=== PATIENT | female | born 1980 | race Caucasian/White ===

== ENCOUNTER 2020-06-04 14:02 | Emergency (ER) | payer BC, SELFPAY ==
[2020-06-04 14:16] VITALS: BP 137/94; PULSE 83; RESP 20; TEMP 36.8; O2SAT 97; BMI 27.3
--- NOTE | 2020-06-04 14:32 | HMH.EDUTC ---
[facility] [place]: Bronchitis Disposition: Home, Self-Care Condition on Discharge: Good Instructions: DI for Acute Bronchitis Additional Instructions: Start antibiotic today. Be sure to complete entire prescription even if feeling better Tylenol and ibuprofen as needed for pain or fever Humidifier/vaporizer/hot steamy shower Follow-up with primary care tomorrow. Follow-up immediately in the ER of the [facility] for new or worsening symptoms or no noticeable improvement over the next 48-72 hours. Stop smoking Inhaler every 4-6 hours as needed. Should help open airways improved cough, wheezing, shortness of breath David Cam will not cause drowsiness to use at bedtime to help stop cough so that she can get some sleep Start steroids today. Helps with inflammation therefore coughing and wheezing. Follow directions on package. Patient states they have taken them before. Prescriptions: predniSONE [Prednisone 20mg Tab] 20 mg PO BID #10 tab Prescription Printed Azithromycin [Zithromax 250mg tab] 250 mg PO DIRECTED #6 tab Prescription Printed Referrals: PCP,No [Primary Care Provider] - Time of Disposition: 14:45 Medical Decision Making - Abilio Inquiry Pt receiving controlled substance: No Vital Signs: 06/04/20 14:16 06/04/20 14:37 Temperature 98.3 F 98.3 F Temperature Source Oral Pulse Rate 83 Pulse Rate [Left] 83 Respiratory Rate 20 20 Blood Pressure 137/94 H Blood Pressure [Right Arm] 137/94 H Blood Pressure Mean [Right Arm] 108 Blood Pressure Source [Right Arm] Automatic Cuff Blood Pressure Position [Right Arm] Sitting 02 Sat by Pulse Oximetry 97 Oxygen Delivery Method Room Air Room Air Orders (Tests/Meds): ORDERS Category Date Time Status SARS-CoV-2, BRANDON Stat Lab 06/04/20 14:24 [place] [facility] [place] - General Chief complaint: [facility] Stated complaint: possible upper resp infection Time Seen by Provider: 06/04/20 14:39 Mode of Arrival: Ambulatory Source of Information: Patient Limitations: No Limitations Description of Symptoms (Recalled from Triage Doc. by RN): Chest congestion, running nose, stuffy nose, SOB. Pt states that she thinks she has an upper respiratory infection. Pt's has had same symptoms and was Covid tested negative and was told he had Rhino infection. HEENT Symptoms (Recalled from RN notes): Yes Resp Symptoms (Recalled from RN notes): Yes Skin Symptoms (Recalled from RN notes): No MS Symptoms (Recalled from RN notes): No Functional Status (Recalled from RN notes): stable - History of Present Illness Provider Complaint: 39-year-old female presents for sore throat, shortness of breath, coughing up thick yellow-white sputum, cough and low-grade fever. Patient states her has the same symptoms and was tested for positive it was negative. 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 - Related Data Previous Rx's Medication Instructions Recorded rsgungzscwvowze-ahvlgxmxqdwbpej-WD 10 ml PO Q4-6H PRN #200 ml 01/21/20 2 mg-30 mg-10 mg/5 mL oral syrup Azithromycin [Zithromax 250mg 250 mg PO DIRECTED #6 tab 06/04/20 tab] predniSONE [Prednisone 20mg 20 mg PO BID #10 tab 06/04/20 Tab] Allergies Allergy/AdvReac Type Severity Reaction Status Date / Time No Known Allergies Allergy Verified 01/21/20 11:12 - Worker's Comp Is this a Worker's Comp case?: No Is this an [facility] Worker's Comp?: No Is this a Mookie Worker's Comp?: No H History - Hepatitis A Screen Drug use history?: No High risk sexual behaviors?: No History of sexually transmitted infection?: No Currently employed?: No Childcare worker?: No Do you have indoor plumbing?: Yes Do you have electricity?: Yes Attestation statement:: This patient has been screened for Hepatitis A risk factors. Medical History: Denies:: Canc
[2020-06-04 14:37] VITALS: BP 137/94; PULSE 83; RESP 20; TEMP 36.8; O2SAT 97
[2020-06-06 13:17] LABS: Covid-19 Nasal PCR Sendout Lex NOT DETECTED
== END 2020-06-04 14:53 | disposition home or self-care (01) ==
PROVIDERS: Emergency Provider Nurse Practitioner Family
DX: J20.9 Acute bronchitis, unspecified (principal); F17.210 Nicotine dependence, cigarettes, uncomplicated
CPT/HCPCS: 99201; U0004

== ENCOUNTER 2020-09-26 09:10 | Emergency (ER) | payer MEDICAID, SELFPAY ==
[2020-09-26 09:31] VITALS: BP 130/85; PULSE 83; RESP 18; TEMP 36.7; O2SAT 96; BMI 26.7
--- NOTE | 2020-09-26 09:41 | HMH.EDUTC ---
[facility] [place] Impression: Bronchitis Sinusitis Qualifiers: Sinusitis location: unspecified location Chronicity: unspecified Qualified Code(s): J32.9 - Chronic sinusitis, unspecified Disposition: Home, Self-Care Condition on Discharge: Good Instructions: Sinusitis, Sinus Headache, DI for Sinusitis, Acute Bronchitis, DI for Acute Bronchitis Additional Instructions: ? Start antibiotic today. Be sure to complete entire prescription even if feeling better ? Monitor temp. Tylenol every 4 hours as needed and / or ibuprofen every 6 hours as needed ( As long as your primary care physician has told you that it ok to take both. For fever/aches/pains ER if no less than 101 despite Tylenol or Motrin ? Humidifier/vaporizer or hot steamy shower ? Inhaler every 4-6 hours as needed like we discussed. If unsure how to use it, ask pharmacist to demonstrate how. Should help open airways and improve cough, wheezing, and shortness of breath ? Mucinex during the day for your cough and cough suppressant only at night. Be sure to drink lots of water. Insurance may not cover a prescriptions for mucinex. Might be cheaper to get 400mg tablets and take 2 tablet in the morning, mid-day and evening with lots of water. Start steroid today. Helps with inflammation therefore, cough and wheezing. Follow directions on the package. Reviewed side effects. Patient reports taking them before. Follow up IMMEDIATELY for new or worsening of symptoms OR no noticeable improvement over the next 48-72 hours. 911 immediately for any life threatening symptoms such as chest pain or difficulty breathing Prescriptions: Albuterol Sulfate [Proventil-HFA 90mcg/puff Inh] 1 - 2 puffs IH Q4HP PRN #1 inh PRN Reason: Shortness Of Breath Transmission Status: Pending to [facility] methylPREDNISolone [Medrol 4mg tab] 4 mg PO DIRECTED #21 tab Transmission Status: Pending to [facility] Azithromycin [Z-Zac 250mg Tab] 250 mg PO DIRECTED #6 tab Transmission Status: Pending to [facility] Referrals: PCP,No [Primary Care Provider] - Forms: Work/School Release Time of Disposition: 09:49 Medical Decision Making - Abilio Inquiry Pt receiving controlled substance: No Abilio was queried for this patient: No Vital Signs: 09/26/20 09:31 Temperature 98.1 F Temperature Source Oral Pulse Rate [Radial] 83 Respiratory Rate 18 Blood Pressure [Right Arm] 130/85 Blood Pressure Mean [Right Arm] 100 Blood Pressure Source [Right Arm] Automatic Cuff Blood Pressure Position [Right Arm] Sitting 02 Sat by Pulse Oximetry 96 Oxygen Delivery Method Room Air [facility] [place] - General Stated complaint: congestion Time Seen by Provider: 09/26/20 09:40 Mode of Arrival: Ambulatory Source of Information: Patient Limitations: No Limitations Description of Symptoms (Recalled from Triage Doc. by RN): chest congestion, needs albuterol inhaler refilled. HEENT Symptoms (Recalled from RN notes): Yes Resp Symptoms (Recalled from RN notes): No Skin Symptoms (Recalled from RN notes): No MS Symptoms (Recalled from RN notes): No Functional Status (Recalled from RN notes): wnl - History of Present Illness Provider Complaint: Patient states that she is an everyday smoker and around this time every year she gets bronchitis and sinusitis States that she started having sinus congestion over a week ago and it is moving into her chest so she came in States that she is also out of her albuteral inhaler and wanted to see if she can get one Reports was just tested for COVID on Thursday and it was negative - Related Data Previous Rx's Medication Instructions Recorded buspdsoaicetcac-lbusdbfebxgsmml-EA 10 ml PO Q4-6H PRN #200 ml 01/21/20 2 mg-30 mg-10 mg/5 mL oral syrup Azithromycin [Zithromax 250mg 250 mg PO DIRECTED #6 tab 06/04/20 tab] predniSONE [Prednisone 20mg 20 mg PO BID #10 tab 06/04/20 Tab] Albuterol Sulfate [Proventil-HFA 1 - 2 puffs I
[2020-09-26 10:14] VITALS: BP 130/85; PULSE 83; RESP 18; TEMP 36.7; O2SAT 96
== END 2020-09-26 10:15 | disposition home or self-care (01) ==
PROVIDERS: Emergency Provider Nurse Practitioner
DX: J20.9 Acute bronchitis, unspecified (principal); J32.9 Chronic sinusitis, unspecified; F17.210 Nicotine dependence, cigarettes, uncomplicated
CPT/HCPCS: 99201

== ENCOUNTER 2020-12-28 11:25 | Emergency (ER) | payer BC, SELFPAY ==
[2020-12-28 11:25] VITALS: BP 136/90; PULSE 93; RESP 14; TEMP 36.1; O2SAT 99; BMI 28.3
--- NOTE | 2020-12-28 11:41 | XR_ITS ---
PROCEDURE: XR LUMBAR SPINE 2-3V CLINICAL INDICATION: PAIN Low back pain, no known injury COMPARISON: No exams were available for comparison FINDINGS: Mild degenerative changes are suspected in the lower thoracic spine. There is normal height and alignment of the lumbar vertebral bodies and intervertebral discs. There is no significant lumbar degenerative change. There is a large amount of stool within the colon. IMPRESSION: Suspect mild degenerative change in the lower thoracic spine. Normal lumbar spine. Constipation. Dictated by: Kirstin Mehta MD 12/28/2020 13:14 Kirstin Mehta MD in [place] 12/28/2020 13:14
--- NOTE | 2020-12-28 11:46 | HMH.EDUTC ---
[facility] [place] Clinical Impression: Low back pain Qualifiers: Chronicity: acute Back pain laterality: bilateral Sciatica presence: without sciatica Qualified Code(s): M54.5 - Low back pain Disposition: Home, Self-Care Condition on Discharge: Good Instructions: DI for Low Back Pain Additional Instructions: Follow up with PCP if not improving. Prescriptions: Cyclobenzaprine HCl [Cyclobenzaprine 10mg Tab*] 10 mg PO TIDP PRN 10 Days #30 tab PRN Reason: Muscle Spasm Transmission Status: [facility] Naproxen 500 mg PO BID 10 Days #20 tab Transmission Status: [facility] Referrals: PCP,No [Primary Care Provider] - Medical Decision Making - Abilio Inquiry Pt receiving controlled substance: No Vital Signs: 12/28/20 11:25 Temperature 97.0 F L Temperature Source Oral Pulse Rate [Right Brachial] 93 H Respiratory Rate 14 Blood Pressure [Right Arm] 136/90 Blood Pressure Mean [Right Arm] 105 Blood Pressure Source [Right Arm] Automatic Cuff Blood Pressure Position [Right Arm] Sitting 02 Sat by Pulse Oximetry 99 Oxygen Delivery Method Room Air Orders (Tests/Meds): ORDERS Category Date Time Status Lumbar spine XR 2-3 views [XR lumbar spine 2-3V] Stat Exams 12/28/20 11:41 Taken - Radiology Data #1 Image(s): L-Spine Image Reviewed: Yes I reviewed the patient's radiology image Preliminary Findings: Normal/NAD, No Fracture Seen [facility] [place] - General Stated complaint: back pain Time Seen by Provider: 12/28/20 11:46 Mode of Arrival: Ambulatory Source of Information: Patient Limitations: No Limitations Description of Symptoms (Recalled from Triage Doc. by RN): PATIENT C/O LOWER BACK PAIN X 3 DAYS. 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 Denies specific injury, but may have injured it lifting someone at work. Hurts across the entire low back. Has pulled a muscle before but this feels different. No numbness or tingling in her legs. No bowel or bladder incontinence. Couldn't hardly get straightened up this morning when she got out of bed. Actually crawled to the bathroom and then nearly cried when she stood up. Cannot find a comfortable position either sitting or lying down. Onset (ago): day(s) (3) Location: back Relieving factors: none Exacerbating factors: none Associated symptoms: denies other symptoms Treatments prior to arrival: none - Related Data Previous Rx's Medication Instructions Recorded akshglsamaerips-gfddlgvjywvejzg-ED 10 ml PO Q4-6H PRN #200 ml 01/21/20 2 mg-30 mg-10 mg/5 mL oral syrup Azithromycin [Zithromax 250mg 250 mg PO DIRECTED #6 tab 06/04/20 tab] predniSONE [Prednisone 20mg 20 mg PO BID #10 tab 06/04/20 Tab] Albuterol Sulfate [Proventil-HFA 1 - 2 puffs IH Q4HP PRN #1 inh 09/26/20 90mcg/puff Inh] Azithromycin [Z-Zac 250mg Tab] 250 mg PO DIRECTED #6 tab 09/26/20 methylPREDNISolone [Medrol 4mg 4 mg PO DIRECTED #21 tab 09/26/20 tab] Cyclobenzaprine HCl 10 mg PO TIDP PRN 10 Days #30 tab 12/28/20 [Cyclobenzaprine 10mg Tab*] Naproxen 500 mg PO BID 10 Days #20 tab 12/28/20 Allergies Allergy/AdvReac Type Severity Reaction Status Date / Time No Known Allergies Allergy Verified 01/21/20 11:12 - Worker's Comp Is this a Worker's Comp case?: No [facility] History - Hepatitis A Screen Drug use history?: No High risk sexual behaviors?: No History of sexually transmitted infection?: No Currently employed?: No Childcare worker?: No Do you have indoor plumbing?: Yes Do you have electricity?: Yes Attestation statement:: This patient has been screened for Hepati
[2020-12-28 12:23] VITALS: BP 136/90; PULSE 93; RESP 14; TEMP 36.1; O2SAT 99
== END 2020-12-28 12:25 | disposition home or self-care (01) ==
PROVIDERS: Emergency Provider Physician Assistant
DX: M54.5 Low back pain (principal); Z79.899 Other long term (current) drug therapy; F17.210 Nicotine dependence, cigarettes, uncomplicated
CPT/HCPCS: 72100; 99202; G0463

== ENCOUNTER 2021-09-16 15:16 | Emergency (ER) | payer BC, SELFPAY ==
[2021-09-16 15:45] VITALS: BP 135/73; PULSE 82; RESP 16; TEMP 37.1; O2SAT 98; BMI 27.6
--- NOTE | 2021-09-16 16:08 | HMH.EDUTC ---
[facility] [place] Clinical Impression: URI (upper respiratory infection) Qualifiers: URI type: unspecified URI Qualified Code(s): J06.9 - Acute upper respiratory infection, unspecified Disposition: Home, Self-Care Condition on Discharge: Good Instructions: Sinusitis, DI for Sinusitis, Sore Throat Additional Instructions: *Monitor Temp, Over the counter Motrin or Tylenol as directed/as needed Tylenol every 4 hours and Motrin every 6 hours (as long as your family doctor has told you that you can take it) for fever or pain. and straight to ER if unable to lower temp less than 101.0 after medication given *Warm salt water gargles may help to soothe the throat *Throat Lozenges *Warm fluids like tea with honey may help to soothe the throat *Sleep elevated *Humidifier/Vaporizer *Flonase 2 sprays in each nostril daily but be aware that it may take 2-3 days before you notice improvement Take medication as prescribed Follow up IMMEDIATELY for new or worsening symptoms or no Noticeable improvement over the next 48-72 hours. 911 for difficulty breathing or swallowing Prescriptions: Fluticasone Propionate [Flonase 50mcg nasal spray 16gm] 1 spr NS DAILY #1 each Transmission Status: Pending to [facility] Cefdinir [Omnicef 300mg Capsule] 300 mg PO BID #20 cap [facility]: [facility] Referrals: Provider,Referral, MD [Primary Care Provider] - As needed Forms: Work/School Release Time of Disposition: 16:16 Medical Decision Making - Abilio Inquiry Pt receiving controlled substance: No Abilio was queried for this patient: No Vital Signs: 09/16/21 15:45 Temperature 98.7 F Temperature Source Oral Pulse Rate [Right Brachial] 82 Respiratory Rate 16 Blood Pressure [Right Arm] 135/73 Blood Pressure Mean [Right Arm] 93 Blood Pressure Source [Right Arm] Automatic Cuff Blood Pressure Position [Right Arm] Sitting 02 Sat by Pulse Oximetry 98 Oxygen Delivery Method Room Air [facility] [place] - General Stated complaint: sore sore throat,cough,congestion Time Seen by Provider: 09/16/21 16:08 Mode of Arrival: Ambulatory Source of Information: Patient Limitations: No Limitations Description of Symptoms (Recalled from Triage Doc. by RN): PATIENT C/O CONGESTION, SORE THROAT, COUGH, RUNNY NOSE AND NASAL CONGESTION X 3 DAYS HEENT Symptoms (Recalled from RN notes): Yes Resp Symptoms (Recalled from RN notes): No Skin Symptoms (Recalled from RN notes): No MS Symptoms (Recalled from RN notes): No Functional Status (Recalled from RN notes): WNL - History of Present Illness Provider Complaint: Patient states that she has been having sinus pressure and pain along with sore throat, drainage in the back of her throat and headache and cough States that son just tested positive for strep throat and she thinks she may have a sinus infection State that she feels like she is having worsening of pressure behind her eyes so she came in Relieving factors: none - Related Data Previous Rx's Medication Instructions Recorded Cefdinir [Omnicef 300mg Capsule] 300 mg PO BID #20 cap 09/16/21 Fluticasone Propionate [Flonase 1 spr NS DAILY #1 each 09/16/21 50mcg nasal spray 16gm] Allergies Allergy/AdvReac Type Severity Reaction Status Date / Time No Known Allergies Allergy Verified 01/21/20 11:12 - Worker's Comp Is this a Worker's Comp case?: No [facility] History - Hepatitis A Screen Drug use history?: No High risk sexual behaviors?: No History of sexually transmitted infection?: No Currently employed?: No Childcare worker?: No Do you have indoor plumbing?: Yes Do you have electricity?: Yes Attestation statement:: This patient has been screened for Hepatitis A risk factors. I have reviewed the patient's past medical history: Yes Medical History: Denies:: Cancer, Diabetes Mellitus Type 1, Diabetes Mellitus Type 2, Internal Pacemaker, MRSA Other Surgeries: Yes: No Previous Surgery. No: Pacemake
[2021-09-16 16:24] VITALS: BP 135/73; PULSE 82; RESP 16; TEMP 37.1; O2SAT 98
== END 2021-09-16 16:37 | disposition home or self-care (01) ==
PROVIDERS: Emergency Provider Nurse Practitioner
DX: J06.9 Acute upper respiratory infection, unspecified (principal); F17.210 Nicotine dependence, cigarettes, uncomplicated
CPT/HCPCS: 99202; G0463

== ENCOUNTER 2021-12-10 13:31 | Emergency (ER) | payer BC, SELFPAY ==
[2021-12-10 14:45] VITALS: BP 138/80; PULSE 72; RESP 18; TEMP 37.2; O2SAT 99; BMI 26.3
--- NOTE | 2021-12-10 15:24 | HMH.EDUTC ---
[facility] [place] Clinical Impression: Viral syndrome Disposition: Home, Self-Care Condition on Discharge: Good Instructions: Sore Throat, DI for Cough -- Adult Additional Instructions: *Monitor Temp, Over the counter Motrin or Tylenol as directed/as needed Tylenol every 4 hours and Motrin every 6 hours (as long as your family doctor has told you that you can take it) for fever or pain. and straight to ER if unable to lower temp less than 101.0 after medication given *Warm salt water gargles may help to soothe the throat *Throat Lozenges *Warm fluids like tea with honey may help to soothe the throat *Sleep elevated *Humidifier/Vaporizer *Flonase 2 sprays in each nostril daily but be aware that it may take 2-3 days before you notice improvement *Bromfed may cause drowsiness. Know how it effects you (your child) before driving, caring for small child, or sending your child to school. Not other antihistamines/allergy medications while taking bromfed Your throat swab was sent for culture. Those results are typically sent to your primary care. Be sure to follow up in 2-3 days with your family doctor/primary care physician if no improvement so they can review those result and treat if necessary. If you don?t have a primary care doctor, I recommend you get one but in the mean time, you will have to return to a walk in clinic Follow up IMMEDIATELY for new or worsening symptoms or no Noticeable improvement over the next 48-72 hours. 911 for difficulty breathing or swallowing You were tested for today for COVID19 your test result should be back in the next 24-72 hours, you may check your results on the [facility] my Health portal if you have trouble logging on you may call support to help you If you are positive someone from the hospital will be calling you Make sure to take your Vitamins Vit. C Vit D and Zinc if you can take them Prescriptions: Brompheniramine/Pseudoephed/Dm [Bromfed Dm Cough Syrup] 5 - 10 ml PO Q46H PRN #200 ml PRN Reason: Cough Transmission Status: Pending to [facility] Referrals: Provider,Referral, [Primary Care Provider] - As needed Forms: Work/School Release Time of Disposition: 15:43 Medical Decision Making - Abilio Inquiry Pt receiving controlled substance: No Abilio was queried for this patient: No Vital Signs: 12/10/21 14:45 Temperature 98.9 F Temperature Source Oral Pulse Rate [Right Brachial] 72 Respiratory Rate 18 Blood Pressure [Right Arm] 138/80 Blood Pressure Mean [Right Arm] 99 Blood Pressure Source [Right Arm] Automatic Cuff Blood Pressure Position [Right Arm] Sitting 02 Sat by Pulse Oximetry 99 Oxygen Delivery Method Room Air - Lab Data Lab results reviewed: Yes: I reviewed the patient's lab results. Lab Results 12/10/21 14:48: Group A Strep Rapid Negative 12/10/21 15:01: Influenza Type A Ag Negative, Influenza Type B Ag Negative Orders (Tests/Meds): ORDERS Category Date Time Status Covid-19 Nasal PCR ([facility]) Routine Lab 12/10/21 15:01 Received Strep Screen Confirmation Stat Micro 12/10/21 14:48 Received [facility] UTC HPI - General Stated complaint: congestion, body aches, bilateral ear ache Time Seen by Provider: 12/10/21 15:24 Mode of Arrival: Ambulatory Source of Information: Patient Limitations: No Limitations Description of Symptoms (Recalled from Triage Doc. by RN): PATIENT C/O BODY ACHES, COUGH, CONGESTION, EARS STOPPED UP AND SORE THROAT SINCE THURSDAY HEENT Symptoms (Recalled from RN notes): Yes Resp Symptoms (Recalled from RN notes): No Skin Symptoms (Recalled from RN notes): No MS Symptoms (Recalled from RN notes): No Functional Status (Recalled from RN notes): WNL - History of Present Illness Provider Complaint: Patient states that she started feeling about a week ago and has continued to feel worse States that she has been having body aches, chills, sinus congestion, sore throat and cough State that she feels like she may have the flu so she
[2021-12-10 15:27] LABS: UTC Influenza A Antigen Negative (Negative); UTC Influenza B Antigen Negative (Negative)
[2021-12-10 15:28] LABS: Strep Scrn Group A (Rapid) Negative (Negative)
[2021-12-10 15:40] VITALS: BP 138/80; PULSE 72; RESP 18; TEMP 37.2; O2SAT 99
== END 2021-12-10 15:48 | disposition home or self-care (01) ==
PROVIDERS: Emergency Provider Nurse Practitioner
DX: U07.1 COVID-19 (principal); F17.210 Nicotine dependence, cigarettes, uncomplicated; B34.9 Viral infection, unspecified
CPT/HCPCS: 87430; 87804; 99203; C9803; G0463; U0003; U0005

== ENCOUNTER 2023-09-19 15:35 | Emergency (ER) | payer BC, SELFPAY ==
[2023-09-19 16:00] VITALS: BP 131/83; PULSE 81; RESP 19; TEMP 37; O2SAT 98; BMI 25.0
--- NOTE | 2023-09-19 16:15 | EXP.UTC ---
Discharge Plan Disposition Patient Disposition: Home, Self-Care Condition: Good Prescriptions Prescriptions: New methylprednisolone [Medrol (Zac)] 4 mg tablets,dose pack See Rx Instructions .Route .COMPLEX 6 Days Qty: 21 0RF Rx Instructions: taper pack; amoxicillin-pot clavulanate 875-125 mg Tablet 1 tab PO Q12H Qty: 20 0RF guaifenesin [Mucinex] 600 mg tablet extended release 12hr 600 - 1,200 mg PO BID PRN (Reason: cough) Qty: 20 0RF No Action jaqhhithqqrupin-hrshssxlo-SU 118 ML syrup 5 - 10 ml PO Q46H PRN (Reason: Cough) Qty: 200 0RF Referrals Follow up/Referrals: Provider,Referral, MD [Primary Care Provider] - See instructions Activity Restrictions/Add. Instructions Additional Instructions/Restrictions: Start antibiotic today. Be sure to complete entire prescription even if feeling better Monitor temp. Tylenol every 4 hours as needed and / or ibuprofen every 6 hours as needed ( As long as your primary care physician has told you that it ok to take both. For fever/aches/pains ER if no less than 101 despite Tylenol or Motrin Humidifier/vaporizer or hot steamy shower Mucinex for your cough Be sure to drink lots of water. *Start steroid today. Helps with inflammation therefore, cough and wheezing. Follow directions on the package. Reviewed side effects. Patient reports taking them before. Follow up IMMEDIATELY for new or worsening of symptoms OR no noticeable improvement over the next 48-72 hours. 911 immediately for any life threatening symptoms such as chest pain or difficulty breathing Clinical Impressions Clinical Impression: Sinusitis Qualifiers: Sinusitis location: unspecified location Chronicity: unspecified Qualified Code(s): J32.9 - Chronic sinusitis, unspecified Instructions Patient Instructions: DI for Sinusitis, Sinusitis Discharge ED Provider: Jyothi Chu [facility] General Stated complaint: BAJWA,Head congestion,core throat,ears stopped up Mode of Arrival: Ambulatory Source of Information: Patient Limitations: No Limitations Time Seen by Provider: 09/19/23 16:15 Description of Symptoms (Recalled from Triage Doc. by RN): PATIENT C/O SINUS CONGESTION X 4 DAYS HEENT Symptoms (Recalled from RN notes): Yes Resp Symptoms (Recalled from RN notes): No Skin Symptoms (Recalled from RN notes): No MS Symptoms (Recalled from RN notes): No Functional Status (Recalled from RN notes): WNL History of Present Illness Provider Complaint: Patient states that she has been having sinus pain and pressure, throat feels sore and scratchy from the drainage, ears feel full and popping at times States that today the pressure was worse behind her eyes so she came in to get checked Denies fever or body aches States that she has taken 2 COVID tests at work and they was negative Related Data Previous Rx's Medication Instructions Recorded owcuiaumbnqhcks-jservkfjypellpo-NP 5 - 10 ml PO Q46H PRN Cough #200 mL 12/10/21 2 mg-30 mg-10 mg/5 mL oral syrup amoxicillin 875 mg-potassium 1 tab PO Q12H #20 tabs 09/19/23 clavulanate 125 mg tablet guaifenesin 600 mg tablet, 600 - 1,200 mg PO BID PRN cough 09/19/23 extended release 12 hr (Mucinex) #20 tabs methylprednisolone 4 mg tablets in See Rx Instructions .Route 09/19/23 a dose pack (Medrol (Zac)) .COMPLEX 6 days #21 tabs Allergies Allergy/AdvReac Type Severity Reaction Status Date / Time No Known Allergies Allergy Verified 01/21/20 11:12 Worker's Comp Is this a Worker's Comp case?: No [facility] Disclaimer: The information contained in this section may have been updated after the patient was seen, as this information can be updated by other users. Medical History (Updated 09/19/23 @ 16:21 by Jyothi Chu APRN) No significant past medical history Social History Smoking Status: Current every day smoker tobacco type: cigarettes packs per day: 1 second hand exposure: No alcohol intake:
[2023-09-19 16:28] VITALS: BP 131/83; PULSE 81; RESP 19; TEMP 37; O2SAT 98
== END 2023-09-19 16:32 | disposition home or self-care (01) ==
PROVIDERS: Emergency Provider Nurse Practitioner
DX: J01.90 Acute sinusitis, unspecified (principal); R07.0 Pain in throat; R51.9 Headache, unspecified; R09.81 Nasal congestion; H92.03 Otalgia, bilateral; F17.210 Nicotine dependence, cigarettes, uncomplicated
CPT/HCPCS: 99212; 99214; G0463

== ENCOUNTER 2023-10-30 17:55 | Emergency (ER) | payer BC, SELFPAY ==
[2023-10-30 18:57] VITALS: BP 135/85; PULSE 84; RESP 18; TEMP 36.7; O2SAT 99; BMI 26.2
[2023-10-30 19:11] LABS: UTC Strep Screen (Rapid) Negative (Negative)
[2023-10-30 19:12] LABS: UTC Influenza A Antigen Negative (Negative); UTC Influenza B Antigen Negative (Negative)
--- NOTE | 2023-10-30 19:12 | EXP.UTC ---
Discharge Plan Disposition Patient Disposition: Home, Self-Care Condition: Good Prescriptions Prescriptions: New pseudoephedrine HCl [Sudafed 12 Hour] 120 mg tablet extended release 120 mg PO Q12H PRN (Reason: nasal congestion) Qty: 20 0RF Referrals Follow up/Referrals: Provider,Referral, [Primary Care Provider] - See instructions Activity Restrictions/Add. Instructions Additional Instructions/Restrictions: *Monitor Temp, Over the counter Motrin or Tylenol as directed/as needed Tylenol every 4 hours and Motrin every 6 hours (as long as your family doctor has told you that you can take it) for fever or pain. and straight to ER if unable to lower temp less than 101.0 after medication given *Warm salt water gargles may help to soothe the throat *Throat Lozenges? *Warm fluids like tea with honey may help to soothe the throat? *Sleep elevated *Humidifier/Vaporizer Your throat swab was sent for culture. Those results are typically sent to your primary care. Be sure to follow up in 2-3 days with your family doctor/primary care physician if no improvement so they can review those result and treat if necessary. If you don?t have a primary care doctor, I recommend you get one but in the mean time, you will have to return to a walk in clinic Follow up IMMEDIATELY for new or worsening symptoms or no Noticeable improvement over the next 48-72 hours. 911 for difficulty breathing or swallowing You were tested for today for ?Upper Respiratory Panel with COVID19 your test result should be back in the next 24hrs, you may check your results on the [facility] My Health Portal if you are positive you must Quarantine for 5 days Clinical Impressions Clinical Impression: Viral syndrome Stand Alone Forms Stand Alone Forms: Work/School Release Instructions Patient Instructions: DI for Viral Syndrome, DI for Fever (Symptom) -- Adult Discharge ED Provider: Jyothi Chu [facility] [place] HPI General Stated complaint: body aches, congestion, headache Mode of Arrival: Ambulatory Source of Information: Patient Limitations: No Limitations Time Seen by Provider: 10/30/23 19:12 Description of Symptoms (Recalled from Triage Doc. by RN): PATIENT C/O BODY ACHES, HEADACHE, CONGESTION, RUNNY NOSE, FATIGUE, LIGHT-HEADED, AND SORE THROAT SINCE LAST NIGHT HEENT Symptoms (Recalled from RN notes): Yes Resp Symptoms (Recalled from RN notes): No Skin Symptoms (Recalled from RN notes): No MS Symptoms (Recalled from RN notes): No Functional Status (Recalled from RN notes): WNL History of Present Illness Provider Complaint: Patient states that she started feeling bad last night States that today she has continued to feel worse States that she feels like she may have the flu States that she has been having body aches, chills, headache, sinus congestion, feeling a little dizzy on and off and sore scratchy throat states that she left work to come in and get checked feeling like she may have the flu Related Data Previous Rx's Medication Instructions Recorded pseudoephedrine HCl 120 mg 120 mg PO Q12H PRN nasal 10/30/23 tablet,extended release (Sudafed congestion #20 tabs 12 Hour) Allergies Allergy/AdvReac Type Severity Reaction Status Date / Time No Known Allergies Allergy Verified 01/21/20 11:12 Worker's Comp Is this a Worker's Comp case?: No [facility] Disclaimer: The information contained in this section may have been updated after the patient was seen, as this information can be updated by other users. Medical History (Updated 10/30/23 @ 19:24 by Jyothi Chu APRN) No significant past medical history Social History Smoking Status: Current every day smoker tobacco type: cigarettes packs per day: 1 second hand exposure: No alcohol intake: never current occupational status: other Travel in the last 8 weeks: None household members: significant other and children housing: SET
[2023-10-30 19:19] VITALS: BP 135/85; PULSE 84; RESP 18; TEMP 36.7; O2SAT 99
[2023-10-30 19:41] LABS: Adenovirus,PCR Not Detected (NotDetected); Coronovirus HKU1,PCR Not Detected (NotDetected)
[2023-10-30 19:42] LABS: Coronavirus 19, PCR Not Detected (NotDetected); Coronavirus 229E Not Detected (NotDetected); Coronavirus NL63 Not Detected (NotDetected); Coronavirus OC43 Not Detected (NotDetected); Human Metapneumovirus Not Detected (NotDetected); Influenza A, PCR Not Detected (NotDetected); Influenza AH1, 2009 Not Detected (NotDetected); Influenza AH1, PCR Not Detected (NotDetected); Influenza B, PCR Not Detected (NotDetected); Parainfluenza 1, PCR Not Detected (NotDetected); Parainfluenza 2, PCR Not Detected (NotDetected); Parainfluenza 3, PCR Not Detected (NotDetected); Parainfluenza 4, PCR Not Detected (NotDetected); Respiratory Syncytial Virus Not Detected (NotDetected); Rhinovirus/Enterovirus Not Detected (NotDetected)
[2023-10-31 08:56] LABS: Influenza AH3,PCR Detected (NotDetected)
== END 2023-10-30 19:34 | disposition home or self-care (01) ==
PROVIDERS: Emergency Provider Nurse Practitioner
DX: J10.1 Influenza due to other identified influenza virus with other respiratory manifestations (principal); R51.9 Headache, unspecified; R50.9 Fever, unspecified; R09.81 Nasal congestion; R07.0 Pain in throat; R42 Dizziness and giddiness; M79.18 Myalgia, other site; F17.210 Nicotine dependence, cigarettes, uncomplicated
CPT/HCPCS: 87581; 87632; 87635; 87798; 87804; 87880; 99212; 99214; G0463

== ENCOUNTER 2024-11-22 10:14 | Emergency (ER) | payer BC, SELFPAY ==
[2024-11-22 10:25] VITALS: BP 128/79; PULSE 72; RESP 17; TEMP 36.8; O2SAT 97; BMI 26.7
--- NOTE | 2024-11-22 10:38 | ED_ITS ---
Discharge Plan Disposition Patient Disposition: Home, Self-Care Condition: Good Prescriptions Prescriptions: New benzonatate 100 mg capsule 100 mg PO TID PRN (Reason: cough) Qty: 30 0RF methylprednisolone [Medrol (Zac)] 4 mg tablets,dose pack See Rx Instructions .Route .COMPLEX 6 Days Qty: 21 0RF Rx Instructions: taper pack; amoxicillin-pot clavulanate 875-125 mg Tablet 1 tab PO Q12H Qty: 20 0RF Referrals Follow up/Referrals: Provider,Referral, MD [Primary Care Provider] - See instructions Activity Restrictions/Add. Instructions Additional Instructions/Restrictions: * Start antibiotic today. Be sure to complete entire prescription even if feeling better * Monitor temp. Tylenol every 4 hours as needed and / or ibuprofen every 6 hours as needed ( As long as your primary care physician has told you that it ok to take both. For fever/aches/pains ER if no less than 101 despite Tylenol or Motrin * Humidifier/vaporizer or hot steamy shower * *Tessalon Perles will not cause drowsiness but use at bedtime to help stop cough so that you may get some rest. *Start steroid today. Helps with inflammation therefore, cough and wheezing. Follow directions on the package. Reviewed side effects. Patient reports taking them before. Follow up IMMEDIATELY for new or worsening of symptoms OR no noticeable improvement over the next 48-72 hours. 911 immediately for any life threatening symptoms such as chest pain or difficulty breathing Clinical Impressions Clinical Impression: Sinusitis, Bronchitis Stand Alone Forms Stand Alone Forms: Work/School Release Instructions Patient Instructions: Cough, DI for Sinusitis, DI for Acute Bronchitis Print Language Print Language: Occitan Discharge ED Provider: Jytohi Chu [facility] [place] HPI General Stated complaint: congestion, sob Mode of Arrival: Ambulatory Source of Information: Patient Limitations: No Limitations Time Seen by Provider: 11/22/24 10:38 Description of Symptoms (Recalled from Triage Doc. by RN): PATIENT C/O COUGH, CONGESTION, AND SOA X 3 DAYS HEENT Symptoms (Recalled from RN notes): Yes Resp Symptoms (Recalled from RN notes): Yes Skin Symptoms (Recalled from RN notes): No MS Symptoms (Recalled from RN notes): No Functional Status (Recalled from RN notes): WNL History of Present Illness Provider Complaint: Patient states that she is an everyday smoker States that she gets bronchitis around this time every year States that she has been having sinus congestion and pressure with drainage in the back of her throat and feels like it is moving into her chest so today she came in to get checked Related Data Previous Rx's ?Medication ?Instructions ?Recorded amoxicillin 875 mg-potassium 1 tab PO Q12H #20 tabs 11/22/24 clavulanate 125 mg tablet benzonatate 100 mg capsule 100 mg PO TID PRN cough #30 caps 11/22/24 methylprednisolone 4 mg tablets in See Rx Instructions .Route 11/22/24 a dose pack (Medrol (Zac)) .COMPLEX 6 days #21 tabs Allergies Allergy/AdvReac Type Severity Reaction Status Date / Time No Known Allergies Allergy Verified 01/21/20 11:12 Worker's Comp Is this a Worker's Comp case?: [facility] Disclaimer: The information contained in this section may have been updated after the patient was seen, as this information can be updated by other users. Medical History (Updated 11/22/24 @ 10:42 by Jyothi Chu APRN) No significant past medical history Social History Smoking Status: Current every day smoker tobacco type: cigarettes packs per day: 1 second hand exposure: No alcohol intake: never current occupational status: other Travel in the last 8 weeks: None household members: significant other and children housing: house current occupational exposures/hazards: No caffeine: No Have you lived/traveled outside [place] in past 30 days?: No Contact w/someone who lives/traveled outside [place] past 30 days?: No Exposure to someone with infectious disease in past 14 days?: No Do you have a fever (greater than 100.4 F or 38 C)?: No Have you tested positive for COVID-19: No Exposed to someone with COVID-19 in past 14 days?: No Do you have a sore throat?: No Do you have a cough?: No Do you have any weakness?: No Do you have any diarrhea?: No Are you experiencing any unusual bleeding?: No Do you have any muscle aches/pain?: No Do you have any abdominal pain?: No Are you experiencing loss of taste or smell?: No ROS Obtained: Yes All systems reviewed & no additional complaints except as documented and Yes Systems reviewed as appropriate & no additional complaints except as documented Constitutional Constitutional: Reports system reviewed and no additional complaints, except as documented, Reports as per HPI and Reports headache(s) ENT Ears, Nose, Mouth, and Throat: Reports system reviewed and no additional complaints, except as documented, Reports as per HPI, Reports headache(s), Reports sinus pain and Reports sinus pressure Cardiovascular Cardiovascular: Reports system reviewed and no additional complaints, except as documented and Reports as per HPI Respiratory Respiratory: Reports system reviewed and no additional complaints, except as documented, Reports as per HPI, Reports shortness of breath (at times after coughing), Reports chest congestion and Reports cough Gastrointestinal Gastrointestingal: Reports system reviewed and no additional complaints, except as documented and as per HPI Neurologic Neurologic: Reports headache(s) Physical Exam General General appearance: alert and in no apparent distress ENT ENT exam: Present mucous membranes moist Expanded ENT Exam Nose exam: Present sinus tenderness Throat exam: Present other (PND noted) Respiratory Respiratory exam: Present normal lung sounds bilaterally; Absent respiratory distress or wheezes Cardiovascular Cardiovascular exam: Present regular rate, normal rhythm and normal heart sounds Abdominal Exam Abdominal exam: Present soft and normal bowel sounds; Absent distention or tenderness Neurological Exam Neurological exam: Present alert, oriented X3 and normal gait Medical Decision Making Medical Records Screening: Per USPSTF and CDC recommendations, given the prevalence of disease in our region, it is our hospital?s policy to screen for HIV and viral Hepatitis for all patients aged 18 and over and those with ongoing risk factors. Abilio Inquiry Pt receiving controlled substance: No Abilio was queried for this patient: No Vital Signs: 11/22/24 10:25 Temperature 98.3 F Temperature Source Oral Pulse Rate [Left Brachial] 72 Respiratory Rate 17 Blood Pressure [Left Arm] 128/79 Blood Pressure Mean [Left Arm] 95 Blood Pressure Source [Left Arm] Automatic Cuff Blood Pressure Position [Left Arm] Sitting 02 Sat by Pulse Oximetry 97 Oxygen Delivery Method Room Air
[2024-11-22 10:45] VITALS: BP 128/79; PULSE 72; RESP 17; TEMP 36.8; O2SAT 97
== END 2024-11-22 10:51 | disposition home or self-care (01) ==
PROVIDERS: Emergency Provider Nurse Practitioner
DX: J40 Bronchitis, not specified as acute or chronic (principal); J32.9 Chronic sinusitis, unspecified
CPT/HCPCS: 99212; G0381